=== PATIENT | female | born 1990 | race Asian ===

== ENCOUNTER → 2024-11-19 08:36 | Outpatient (REF) | payer BC, SELFPAY | LOC: PNTC 08:36 | PROVIDERS: ATTENDING PHYSICIAN Student in an Organized Health Care Education/Training Program | DX: O09.529 Supervision of elderly multigravida, unspecified trimester (principal); Z36.0 Encounter for antenatal screening for chromosomal anomalies; Z36.82 Encounter for antenatal screening for nuchal translucency | CPT/HCPCS: 76801; 76813 ==

== ENCOUNTER 2025-05-29 09:40 | Inpatient (IN) | payer BC, SELFPAY ==
[2025-05-29 10:06] VITALS: BP 115/70; BMI 28.9
[2025-05-29 10:27] LABS: Hematocrit 36.2 % (37.0-47.0); Hemoglobin 12.0 g/dL (12.0-16.0); Mean Corp Hgb Conc. 33.1 g/dL (33.0-37.0); Mean Corpuscular Volume 85.2 fL (81.0-99.0); Nucleated Red Blood Cells % 0 %; Platelet Count 150 10^3/uL (130-400); Red Cell Dist. Width 13.9 % (11.5-14.5)
[2025-05-29] MEDS: SUBLIMAZE 100 MCG EPIDURAL (10:36)
[2025-05-29] MEDS: FENTANYL/BUPIVACAINE 100 EPIDURAL (10:37)
[2025-05-29] MEDS: COLACE 100 MG PO (20:06)
[2025-05-30 05:10] LABS: Hematocrit 29.8 % (37.0-47.0); Hemoglobin 10.0 g/dL (12.0-16.0)
[2025-05-30] MEDS: COLACE PO (11:18)
[2025-05-31 13:16] LABS: Syphilis/T. pallidum Ab Reflex Negative (Negative)
== END 2025-05-30 17:13 | disposition home or self-care (01) | DRG 807 ==
LOC: LDRP 09:40
PROVIDERS: ADMITTING PHYSICIAN Obstetrics & Gynecology
PROC: 0KQM0ZZ Repair Perineum Muscle, Open Approach (ICD-10-PCS; 2025-05-29)
PROC: 10E0XZZ Delivery of Products of Conception, External Approach (ICD-10-PCS; 2025-05-29)
DX: O77.0 Labor and delivery complicated by meconium in amniotic fluid (principal); Z37.0 Single live birth; Z3A.39 39 weeks gestation of pregnancy; O70.1 Second degree perineal laceration during delivery
CPT/HCPCS: 85014; 85018; 85025; 86780; 86850; 86900; 86901